=== PATIENT | female | born 1990 | race Caucasian/White ===

== ENCOUNTER 2017-07-21 17:05 | Inpatient (IN) | payer OTHER ==
[~2017-07-21] VITALS: Ht 149.9 cm; Wt 93.0 kg
[~2017-07-21 17:05] MED LIST: LISINOPRIL10 MG PO; PROMETHAZINE HC25 M1 PO
--- NOTE | 2017-07-21 18:47 | NUR ---
07/21/17 184 Luisa Lopez REPORT FROM [employer].
--- NOTE | 2017-07-23 11:13 | OR ---
[facility] [address], [place] [address] Signed DATE OF PROCEDURE: 07/21/17 SURGEON: Aleena Chopra MD PERCUSSION TUNER: Dr. Lopez PREOPERATIVE DIAGNOSES Term , chronic hypertension, superimposed preeclampsia. POSTOPERATIVE DIAGNOSES Term , chronic hypertension, superimposed preeclampsia. Delivered. PROCEDURE Repeat section with low segment transverse uterine incision. ANESTHESIA: Spinal. ESTIMATED BLOOD LOSS: 600 mL. DRAINS: Patel catheter. INDICATIONS AND FINDINGS The patient is a 27-year-old female, 2, para 1, admitted at 37 and 2/7 weeks with chronic hypertension with superimposed preeclampsia. Because of the preeclampsia, it was felt that delivery was indicated at this point. She has had 1 prior . At the time of delivery, she delivered a little boy via lower segment transverse uterine incision from the ROP position with Apgars of 8 and 9 and weight of 6 pounds 13 ounces. There was a nuchal cord x1. There were adhesions of the bladder over the anterior uterus as well as the omentum to the anterior peritoneum. The uterus, tubes, ovaries, and placenta otherwise appeared normal. DESCRIPTION OF PROCEDURE The patient was prepped and draped in the supine position. A repeat Pfannenstiel skin incision was made and carried down through the fascia. The incision was extended laterally. The inferior and superior fascial flaps were then created. The muscles were sharply divided. The peritoneum entered and the incision extended superiorly and inferiorly. The Eric retractor was then placed. The bladder effluxion was taken down as it was fairly high on the uterine wall given the scarring. This was done sharply. The uterine wall was then scored and entered with a knife and the incision extended bluntly. The baby was delivered with the above findings and handed off to the pediatric staff in attendance. The uterus was explored manually after removal of the placenta to ensure there were no remaining fragments. The uterine incision was then closed in 2 layers Electronically Signed By: ALEENA CHOPRA MD 07/23/17 1113 PATIENT NAME: ELIJAH MERIDA OPERATIVE REPORT DATE OF : 89 PHYSICIAN: ALEENA CHOPRA MD REPORT #: [id number] REPORT IS CONFIDENTIAL AND NOT TO BE RELEASED WITHOUT AUTHORIZATION [facility] [address] [place] [id number] Signed using 0 Monocryl. The first layer was a running locking stitch and the second was a vertical imbricating stitch. Good hemostasis was noted. The abdomen was then irrigated and inspected. It appeared to be hemostatic. The retractor was removed and the omental adhesions were divided with Herlinda clamps and Metzenbaum scissors and tied off with a free real tie of 2-0 chromic. Following this, the peritoneum was free. The peritoneum was then identified and an ACell graft was then laid over the uterine incision to aid in healing. The peritoneum was closed with running suture of 3-0 Vicryl. The muscles were brought together with interrupted sutures of 0 Vicryl. ACell powder was sprinkled over the muscles to aid in healing. The fascia was then closed from each angle to the midline with a running suture of 0 Vicryl. The subcutaneous tissue was inspected and found to be hemostatic. It was irrigated. The deep space was closed with interrupted sutures of 3-0 Vicryl. The skin was closed with supriya. All sponge and needle counts were correct. She tolerated the procedure well, was taken to the recovery room in goo d condition. MD LORETTA BunnW/Cassandra /[id number] cc: Deepa Lopez MD Electronically Signed By: ALEENA CHOPRA MD 07/23/17 1113 PATIENT NAME: ELIJAH MERIDA OPERATIVE REPORT DATE OF : 89 PHYSICIAN: ALEENA CHOPRA MD REPORT #: [id number] REPORT IS CONFIDENTIAL AND NOT TO BE RELEASED WITHOUT AUTHORIZATION
== END 2017-07-22 18:56 | disposition home or self-care (01) | DRG 765 ==
LOC: FBCO 17:05 → FBC 17:20
PROVIDERS: ADMIT Obstetrics & Gynecology
PROC: 10D00Z1 Extraction of Products of Conception, Low, Open Approach (ICD-10-PCS; principal; 2017-07-21 19:00)
DX: O34.211 Maternal care for low transverse scar from previous cesarean delivery (principal); O10.92 Unspecified pre-existing hypertension complicating childbirth; Z3A.37 37 weeks gestation of pregnancy; Z37.0 Single live birth; O69.1XX0 Labor and delivery complicated by cord around neck, with compression, not applicable or unspecified; O11.4 Pre-existing hypertension with pre-eclampsia, complicating childbirth
CPT/HCPCS: 01961; 36415; 82565; 83030; 84450; 84520; 84550; 85025; 85027; 86850; 86900; 86901; C1763; J1170; J1644; J2274; J2370; J2405; J2590; J2765; J2790; J3010; J7040; J7120

== ENCOUNTER 2020-10-04 18:37 | Emergency (ER) | payer SELFPAY ==
[~2020-10-04] VITALS: Ht 149.9 cm; Wt 95.3 kg
--- NOTE | 2020-10-04 21:18 | EKG ---
[facility] [address] [facility] [place], [place] [address] Signed Sinus tachycardia Otherwise normal ECG No previous ECGs available Confirmed by NATHANIEL SANCHEZ DO ([id number]) on 10/04/2020 9:18:00 PM Electronically Signed By: NATHANIEL SANCHEZ DO 10/04/208 PATIENT NAME: ELIJAH MERIDA Electrocardiogram DATE OF : 89 PHYSICIAN: NATHANIEL SANCHEZ DO REPORT #: [id number] REPORT IS CONFIDENTIAL AND NOT TO BE RELEASED WITHOUT AUTHORIZATION
[2020-10-04] MEDS ORDERED: LISINOPRIL10 MG PO (22:50)
== END 2020-10-04 23:17 | disposition home or self-care (01) ==
LOC: ED 18:37
DX: I10 Essential (primary) hypertension (principal); G43.909 Migraine, unspecified, not intractable, without status migrainosus; F17.200 Nicotine dependence, unspecified, uncomplicated
CPT/HCPCS: 71045; 71260; 80053; 83735; 84484; 84703; 85025; 85379; 93005; 93010; 99285-25; Q9967